=== PATIENT | male | born 1950 | race Caucasian/White ===

== ENCOUNTER 2023-03-20 11:34 | Inpatient (IN) | payer MEDICARE ==
[~2023-03-20] VITALS: Ht 188 cm; Wt 86.6 kg
[~2023-03-20 11:34] MED LIST: SULF1TAB48 PO
[2023-03-20 11:54] LABS: BASOPHILS % (AUTO) 0.6 % (0-1); EOSINOPHILS # (AUTO) 0.1 X10'3 (0-0.9); EOSINOPHILS % (AUTO) 0.8 % (0-6); HEMATOCRIT 47.4 % (42.0-52.0); HEMOGLOBIN 15.9 g/dl (14.0-17.9); LYMPHOCYTES # (AUTO) 1.3 X10'3 (1.1-4.8); MEAN CORPUSCULAR HGB CONC 33.5 g/dL (33.0-36.5); MEAN CORPUSCULAR VOLUME 92.7 FL (78-98); MONOCYTES # (AUTO) 0.8 X10'3 (0-0.9); MONOCYTES % (AUTO) 10.7 % (2-12); NEUTROPHILS # (AUTO) 4.9 X10'3 (1.8-7.7); NEUTROPHILS % (AUTO) 68.9 % (42-75); PLATELET COUNT 340 X10'3 (140-440); RED BLOOD COUNT 5.12 X10'6 (4.70-6.10); RED CELL DISTRIBUTION WIDTH 14.5 % (11.5-14.5); WHITE BLOOD COUNT 7.1 X10'3 (4.5-11.0)
[2023-03-20 12:11] LABS: ALANINE AMINOTRANSFERASE 29 U/L (12-78); ALBUMIN 3.2 G/DL (3.4-5.0); ALKALINE PHOSPHATASE 76 IU/L (46-116); ANION GAP 11 (8-16); ASPARTATE AMINO TRANSFERASE 28 U/L (10-37); BILIRUBIN,TOTAL 1.1 MG/DL (0.1-1.0); BLOOD UREA NITROGEN 12 MG/DL (7-18); BUN/CREATININE RATIO 14.3 (10.0-20.0); CHLORIDE 104 MMOL/L (99-107); CREATININE 0.84 MG/DL (0.60-1.10); GLUCOSE 109 MG/DL (70-104); POTASSIUM 3.6 MMOL/L (3.5-5.1); SODIUM 140 MMOL/L (135-145); TOTAL CARBON DIOXIDE 25.4 MMOL/L (24-32); TOTAL PROTEIN 6.5 G/DL (6.4-8.2); eCRCL 94 ML/MIN; eGFR 90 ML/MIN
[2023-03-20 12:18] LABS: PRO BRAIN NATRIURETIC PEPTIDE 822 PG/ML (0-125)
[2023-03-20] MEDS ORDERED: iohexol 350MG/ML 100ml bottle IV ONE (16:11)
[2023-03-20 19:25] LABS: ABG BASE EXCESS -0.2 mmol/L (-2.0-2.0); ABG HCO3 22.9 mmol/L (22.0-26.0); ABG OXYGEN SATURATION 94.7 % (94-97); ABG PCO2 (T) 33.7 mmHg (35.0-48.0); ABG PO2 (T) 69.2 mmHg (75.0-100.0); FCOHb 0.6 % (0.0-3.9); FHHb 5.2 % (0.0-5.0); FLOW 2 L/min; FMetHb 0.4 % (0.0-1.5); FO2Hb 93.8 % (94-97); MODE NASAL CANNULA
[2023-03-20] MEDS ORDERED: furosemide 10 MG/1 ML 10ml inj IV ONE (19:35)
--- NOTE | 2023-03-20 19:38 | NUR ---
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 MD at bedside. Orders received. Patient states he self caths, order obtained for indwelling lopez.
[2023-03-20] MEDS ORDERED: LIDOcaine 2% 10ml TOPICAL JELLY (Urojet) TP ONE (19:40)
[2023-03-20] MEDS ORDERED: LidoCAINE 2% Topical Jelly 11mL syringe TOP ONE (20:00)
[2023-03-20] MEDS ORDERED: dextrose 50%-water 50ml dispensing syringe IV PRN (20:40)
[2023-03-20] MEDS ORDERED: ondansetron 4mg rapidly disintigrating tab PO PRN (20:40)
[2023-03-20] MEDS ORDERED: ipratropium/albuterol 3ml nebule NEB PRN (20:40)
[2023-03-20] MEDS ORDERED: HYDROcodone/acetaminophen 5mg/325mg tablet PO PRN (20:40)
[2023-03-20] MEDS ORDERED: ondansetron/PF 4mg/2ml inj IV PRN (20:40)
[2023-03-20] MEDS ORDERED: acetaminophen 325mg tablet PO PRN ×2 (20:40)
[2023-03-20] MEDS ORDERED: haloperidol lactate 5mg/ml inj IM PRN (20:40)
[2023-03-20] MEDS ORDERED: magnesium hydroxide 30ml (MOM) UD suspension PO PRN (20:40)
[2023-03-20] MEDS ORDERED: haloperidol 5mg tablet PO PRN (20:40)
[2023-03-20] MEDS ORDERED: bisacodyl 10mg suppository rectal RC PRN (20:40)
[2023-03-20] MEDS ORDERED: diphenhydrAMINE 25mg capsule PO PRN (20:40)
[2023-03-20] MEDS ORDERED: morphine 2 MG/ML inj. syringe IV PRN (20:40)
[2023-03-20] MEDS ORDERED: LORazepam 2 mg/ml vial IV PRN (20:40)
[2023-03-20] MEDS ORDERED: mag hydrox/Alum hydrox/simeth 30ml oral suspension PO PRN (20:40)
[2023-03-20] MEDS ORDERED: acetaminophen 650mg rectal suppository RC PRN (20:40)
[2023-03-20] MEDS ORDERED: diphenhydrAMINE 50 mg/ml inj IV PRN (20:40)
[2023-03-20] MEDS ORDERED: ringers solution, lacted 1,000 ML IV ONE (20:50)
[2023-03-20] MEDS ORDERED: temazepam 15mg capsule PO PRN (21:00)
[2023-03-20] MEDS: dextrose 5%-1/2 normal saline 1,000 ML IV SCH (21:25)
[2023-03-20 21:34] LABS: BILIRUBIN,URINE NEGATIVE (Neg); CLARITY,URINE CLEAR (Clear); COLOR,URINE STRAW (Yellow); GLUCOSE, URINE NEGATIVE (Neg); KETONES,URINE NEGATIVE (Neg); LEUKOCYTE ESTERASE ,URINE NEGATIVE (Neg); NITRITES, URINE NEGATIVE (Neg); OCCULT BLOOD,URINE TRACE-INTACT (Neg); PROTEIN,URINE NEGATIVE (Neg); UROBILINOGEN,URINE 0.2 E.U/dL (0.2-1.0)
[2023-03-20] MEDS: thiamine 100mg/ml 2ml inj. IV SCH (21:35)
[2023-03-20] MEDS: CefTRIAXone/D5W-Rocephin 1gm 50 ML IV SCH (21:38)
[2023-03-20 21:42] LABS: UA COLLECTION TYPE FOLEY CATH
[2023-03-20 21:43] LABS: SQUAMOUS EPITHELIAL CELL,UR NONE SEEN /LPF (FEW)
[2023-03-20 21:44] LABS: BACTERIA,URINE FEW /HPF (Neg); WBC,URINE 0-4 /HPF (0-4)
[2023-03-20 21:49] LABS: URINE AMPHETAMINE SCREEN NEGATIVE (Neg); URINE BARBITUATE SCREEN NEGATIVE (Neg); URINE BENZODIAZEPINES SCREEN NEGATIVE (Neg); URINE CANNABINOID SCREEN NEGATIVE (Neg); URINE COCAINE SCREEN NEGATIVE (Neg); URINE METHADONE SCREEN NEGATIVE (Neg); URINE OPIATE SCREEN NEGATIVE (Neg); URINE PHENCYCLIDINE SCREEN NEGATIVE (Neg)
[2023-03-20 21:49] LABS: HEMOGLOBIN A1C 5.5 % (4.5-6.2)
[2023-03-20 21:57] LABS: APTT 27 SECONDS (22-32); PROTHROMBIN TIME 10.3 SECONDS (9.0-12.0)
[2023-03-20] MEDS: azithromycin/NS 500mg/250ml 250 ML IV SCH (22:01)
[2023-03-20 22:15] VITALS: PULSE 105; RESP 18; O2SAT 94
[2023-03-20 22:18] LABS: CREATINE KINASE 61 U/L (39-308); ETHANOL < 10 MG/DL (<10); LIPASE 25 U/L (16-77); MAGNESIUM 1.6 MG/DL (1.5-2.4); PHOSPHORUS 3.4 MG/DL (2.3-4.5); PRO BRAIN NATRIURETIC PEPTIDE 1686 PG/ML (0-125); THYROID STIMULATING HORMONE 4.66 ulU/ml (0.34-4.50)
[2023-03-20 22:41] LABS: OSMOLALITY 301 MOSM/K (280-300)
--- NOTE | 2023-03-21 02:30 | NUR ---
Patient resting in bed awake, watching TV on his phone. Respirations even and unlabored, no acute distress noted at this time, call light within reach.
--- NOTE | 2023-03-21 03:35 | NUR ---
Water provided for patient, denies further needs at this time, call light within reach.
[2023-03-21 03:47] LABS: BASOPHILS % (AUTO) 0.3 % (0-1); EOSINOPHILS # (AUTO) 0.1 X10'3 (0-0.9); EOSINOPHILS % (AUTO) 0.7 % (0-6); HEMATOCRIT 49.2 % (42.0-52.0); HEMOGLOBIN 16.4 g/dl (14.0-17.9); LYMPHOCYTES # (AUTO) 1.4 X10'3 (1.1-4.8); LYMPHOCYTES % (AUTO) 13.5 % (21-51); MEAN CORPUSCULAR HEMOGLOBIN 30.8 PG (27.0-31.0); MEAN CORPUSCULAR HGB CONC 33.2 g/dL (33.0-36.5); MEAN CORPUSCULAR VOLUME 92.6 FL (78-98); MONOCYTES # (AUTO) 1.1 X10'3 (0-0.9); MONOCYTES % (AUTO) 10.9 % (2-12); NEUTROPHILS # (AUTO) 7.6 X10'3 (1.8-7.7); NEUTROPHILS % (AUTO) 74.6 % (42-75); PLATELET COUNT 366 X10'3 (140-440); RED BLOOD COUNT 5.31 X10'6 (4.70-6.10); RED CELL DISTRIBUTION WIDTH 14.3 % (11.5-14.5); WHITE BLOOD COUNT 10.2 X10'3 (4.5-11.0)
[2023-03-21 04:00] LABS: ALANINE AMINOTRANSFERASE 26 U/L (12-78); ALBUMIN 3.2 G/DL (3.4-5.0); ALKALINE PHOSPHATASE 82 IU/L (46-116); ANION GAP 9 (8-16); ASPARTATE AMINO TRANSFERASE 25 U/L (10-37); BLOOD UREA NITROGEN 11 MG/DL (7-18); BUN/CREATININE RATIO 12.5 (10.0-20.0); CALCIUM 8.9 MG/DL (8.5-10.1); CHLORIDE 102 MMOL/L (99-107); CHOL/HDL RATIO 2.9 (0.00-4.99); CHOLESTEROL 166 MG/DL (0-200); CREATININE 0.88 MG/DL (0.60-1.10); GLUCOSE 114 MG/DL (70-104); HDL CHOLESTEROL 57 MG/DL (35-60); LDL CHOLESTEROL 91 MG/DL (50-100); POTASSIUM 3.5 MMOL/L (3.5-5.1); SODIUM 139 MMOL/L (135-145); TOTAL CARBON DIOXIDE 28.5 MMOL/L (24-32); TOTAL PROTEIN 6.5 G/DL (6.4-8.2); TRIGLYCERIDES 162 MG/DL (20-135); eCRCL 90 ML/MIN; eGFR 85 ML/MIN
[2023-03-21] MEDS: dextrose 5%-1/2 normal saline 1,000 ML IV SCH ×2 (07:27→17:35)
[2023-03-21 07:28] VITALS: PULSE 99; RESP 18; O2SAT 94
[2023-03-21] MEDS: heparin, porcine 5000 units/ml vial SQ SCH ×2 (08:12→20:56)
[2023-03-21] MEDS: thiamine 100mg/ml 2ml inj. IV SCH ×3 (08:12→21:03)
[2023-03-21] MEDS: methylPREDNISolone sod succ 125mg/2ml vial IV SCH ×2 (08:12→20:54)
[2023-03-21] MEDS: pantoprazole 40mg Tablet.DR PO SCH (08:13)
[2023-03-21] MEDS: docusate sod 100mg capsule PO SCH ×2 (08:13→20:00)
[2023-03-21] MEDS: folic acid 1mg/0.2ml inj IV SCH (09:15)
--- NOTE | 2023-03-21 11:18 | NUR ---
Pt. placed on hospital bed for comfort. Pt. sat in chair at side of bed and became SOB with minimal exertion. SpO2 remained in mid 90's.
[2023-03-21] MEDS ORDERED: PERFLUTREN PROTEIN-A MICROSPHR (Optison) 0.22 MG/ML 3ML VIAL IV ONE (12:50)
--- NOTE | 2023-03-21 16:40 | NUR ---
ONUR CAMPA NOTIFIED BY RADIOLOGY DIRECTOR PT ECHO RESULT 20-25% EF. DR. UPTON NOTIFIED. NO NEW ORDERS AT THIS TIME.
[2023-03-21] MEDS ORDERED: furosemide 10 MG/1 ML 10ml inj IV ONE (20:50)
[2023-03-21] MEDS: lisinopril 2.5mg tablet PO SCH (21:12)
[2023-03-21] MEDS: CefTRIAXone/D5W-Rocephin 1gm 50 ML IV SCH (21:16)
[2023-03-21] MEDS: azithromycin/NS 500mg/250ml 250 ML IV SCH (22:30)
--- NOTE | 2023-03-21 23:38 | NUR ---
Patient complaint of an aching Chest pain, 3/10, non radiating, begining approx 30 min ago. Pt denies nausa. EKG ordered.
--- NOTE | 2023-03-21 23:45 | NUR ---
notified of patient chest pain. New order for Tylenol 650 mg.
[2023-03-22] VITALS (11 sets, daily range): BP systolic 89–108; BP diastolic 56–74; PULSE 60–106; RESP 12–18; TEMP 97.2–98.4; O2SAT 91–99
[2023-03-22] MEDS: dextrose 5%-1/2 normal saline 1,000 ML IV SCH ×3 (02:40→20:42)
[2023-03-22 03:16] LABS: BASOPHILS % (AUTO) 0.2 % (0-1); EOSINOPHILS % (AUTO) 0 % (0-6); HEMATOCRIT 49.7 % (42.0-52.0); HEMOGLOBIN 16.5 g/dl (14.0-17.9); LYMPHOCYTES # (AUTO) 0.6 X10'3 (1.1-4.8); LYMPHOCYTES % (AUTO) 4.5 % (21-51); MEAN CORPUSCULAR HEMOGLOBIN 30.7 PG (27.0-31.0); MEAN CORPUSCULAR HGB CONC 33.2 g/dL (33.0-36.5); MEAN CORPUSCULAR VOLUME 92.5 FL (78-98); MEAN PLATELET VOLUME 8.9 FL (7.4-10.4); MONOCYTES # (AUTO) 0.3 X10'3 (0-0.9); MONOCYTES % (AUTO) 2.6 % (2-12); NEUTROPHILS # (AUTO) 11.6 X10'3 (1.8-7.7); NEUTROPHILS % (AUTO) 92.7 % (42-75); PLATELET COUNT 359 X10'3 (140-440); RED BLOOD COUNT 5.38 X10'6 (4.70-6.10); RED CELL DISTRIBUTION WIDTH 14.3 % (11.5-14.5); WHITE BLOOD COUNT 12.5 X10'3 (4.5-11.0)
[2023-03-22 03:27] LABS: ANION GAP 8 (8-16); CHLORIDE 101 MMOL/L (99-107); POTASSIUM 3.9 MMOL/L (3.5-5.1); SODIUM 137 MMOL/L (135-145); TOTAL CARBON DIOXIDE 28.1 MMOL/L (24-32)
[2023-03-22 03:56] LABS: ALANINE AMINOTRANSFERASE 29 U/L (12-78); ALBUMIN 3.1 G/DL (3.4-5.0); ALBUMIN/GLOBULIN RATIO 0.9 (1.1-1.5); ALKALINE PHOSPHATASE 82 IU/L (46-116); ASPARTATE AMINO TRANSFERASE 27 U/L (10-37); BLOOD UREA NITROGEN 12 MG/DL (7-18); CALCIUM 9.1 MG/DL (8.5-10.1); CREATININE 0.92 MG/DL (0.60-1.10); GLUCOSE 140 MG/DL (70-104); TOTAL PROTEIN 6.6 G/DL (6.4-8.2); eCRCL 86 ML/MIN; eGFR 81 ML/MIN
[2023-03-22] MEDS ORDERED: FURO40TA4 PO (07:12)
[2023-03-22] MEDS ORDERED: FLO0.4C PO (07:12)
[2023-03-22] MEDS ORDERED: CARV6.253 PO (07:12)
[2023-03-22] MEDS ORDERED: ATOR20TA66 PO (07:12)
[2023-03-22] MEDS ORDERED: SPIR25TA5 PO (07:12)
[2023-03-22] MEDS ORDERED: carVEDilol 3.125mg tablet PO SCH (08:00)
[2023-03-22] MEDS: furosemide 40mg/4ml inj IV SCH ×2 (08:51→20:29)
[2023-03-22] MEDS: methylPREDNISolone sod succ 125mg/2ml vial IV SCH ×2 (08:51→20:29)
[2023-03-22] MEDS: thiamine 100mg/ml 2ml inj. IV SCH ×3 (08:51→20:29)
[2023-03-22] MEDS: lisinopril 2.5mg tablet PO SCH (08:52)
[2023-03-22] MEDS: docusate sod 100mg capsule PO SCH ×2 (08:52→20:30)
[2023-03-22] MEDS: heparin, porcine 5000 units/ml vial SQ SCH ×2 (08:52→20:30)
--- NOTE | 2023-03-22 08:56 | NUR ---
Patient in room ED 6. I have received report from [facility] and had the opportunity to ask questions and assume patient care.
[2023-03-22] MEDS: pantoprazole 40mg Tablet.DR PO SCH (09:46)
[2023-03-22] MEDS: folic acid 1mg/0.2ml inj IV SCH (10:20)
--- NOTE | 2023-03-22 17:34 | NUR ---
PAGER ID: [phone] MESSAGE: BOBBY RUIZ RE:[id number] Cailin CLARK PATIENT HAS HISTORY OF CHF AND PBNP OF 1650 , DID YOU WANT HIS FLUIDS TO CONTINUE TO RUN AT 100ML/HR THEY HAVE OR DID YOU WANT TO SLOW OR STOP THEM?
--- NOTE | 2023-03-22 17:47 | NUR ---
Student documentation: I have reviewed all interventions, assessments performed and documented by Fito YOUSIF. Student Medication Administration: For this medication-pass time frame, all medication were reviewed, dispensed, administered and documented per hospital policy by Fito YOUSIF.
--- NOTE | 2023-03-22 18:27 | NUR ---
Problems reprioritized. Patient report given, questions answered & plan of care reviewed with MARK.
[2023-03-22] MEDS: carvedilol 6.25mg tablet PO SCH (20:00)
[2023-03-22] MEDS: tamsulosin 0.4mg capsule PO SCH (20:30)
[2023-03-22] MEDS ORDERED: LORazepam 2 mg/ml vial IV PRN (20:40)
[2023-03-22] MEDS ORDERED: LORazepam 1 MG tablet PO PRN (20:40)
[2023-03-22] MEDS: CefTRIAXone/D5W-Rocephin 1gm 50 ML IV SCH (20:42)
[2023-03-22] MEDS: azithromycin/NS 500mg/250ml 250 ML IV SCH (21:37)
[2023-03-23] VITALS (11 sets, daily range): BP systolic 89–106; BP diastolic 63–78; PULSE 51–101; RESP 11–18; TEMP 97.2–98.7; O2SAT 92–97
--- NOTE | 2023-03-23 06:36 | NUR ---
Problems reprioritized. Patient report given, questions answered & plan of care reviewed with FRANKLIN. Addendum: 03/23/23 at 0636 by Calin Jones RN Amended: Links added.
[2023-03-23] MEDS: folic acid 1mg/0.2ml inj IV SCH (08:00)
[2023-03-23] MEDS: docusate sod 100mg capsule PO SCH ×2 (08:00→19:15)
[2023-03-23] MEDS: furosemide 40mg/4ml inj IV SCH ×2 (08:00→19:14)
[2023-03-23] MEDS ORDERED: furosemide 40mg tablet PO SCH (08:00)
[2023-03-23] MEDS: methylPREDNISolone sod succ 125mg/2ml vial IV SCH ×2 (09:15→19:23)
[2023-03-23] MEDS: thiamine 100mg/ml 2ml inj. IV SCH ×2 (09:15→15:08)
[2023-03-23 09:16] LABS: BASOPHILS # (AUTO) 0.1 X10'3 (0-0.2); BASOPHILS % (AUTO) 0.4 % (0-1); EOSINOPHILS % (AUTO) 0 % (0-6); HEMATOCRIT 46.2 % (42.0-52.0); HEMOGLOBIN 15.4 g/dl (14.0-17.9); LYMPHOCYTES # (AUTO) 1.1 X10'3 (1.1-4.8); LYMPHOCYTES % (AUTO) 8.7 % (21-51); MEAN CORPUSCULAR HEMOGLOBIN 31.1 PG (27.0-31.0); MEAN CORPUSCULAR HGB CONC 33.4 g/dL (33.0-36.5); MEAN CORPUSCULAR VOLUME 93.1 FL (78-98); MEAN PLATELET VOLUME 8.9 FL (7.4-10.4); MONOCYTES # (AUTO) 0.9 X10'3 (0-0.9); MONOCYTES % (AUTO) 6.7 % (2-12); NEUTROPHILS # (AUTO) 10.7 X10'3 (1.8-7.7); NEUTROPHILS % (AUTO) 84.2 % (42-75); PLATELET COUNT 364 X10'3 (140-440); RED BLOOD COUNT 4.96 X10'6 (4.70-6.10); RED CELL DISTRIBUTION WIDTH 14.5 % (11.5-14.5); WHITE BLOOD COUNT 12.7 X10'3 (4.5-11.0)
[2023-03-23] MEDS: spironolactone 25 MG tablet PO SCH (09:17)
[2023-03-23] MEDS: tamsulosin 0.4mg capsule PO SCH ×2 (09:19→19:15)
[2023-03-23] MEDS: carvedilol 6.25mg tablet PO SCH ×2 (09:19→19:14)
[2023-03-23] MEDS: lisinopril 2.5mg tablet PO SCH (09:20)
[2023-03-23] MEDS: heparin, porcine 5000 units/ml vial SQ SCH ×2 (09:21→19:16)
[2023-03-23] MEDS: atorvastatin 20mg tablet PO SCH (09:22)
[2023-03-23] MEDS: pantoprazole 40mg Tablet.DR PO SCH (09:25)
[2023-03-23 10:06] LABS: ALANINE AMINOTRANSFERASE 32 U/L (12-78); ALBUMIN 3.2 G/DL (3.4-5.0); ALKALINE PHOSPHATASE 75 IU/L (46-116); ANION GAP 11 (8-16); ASPARTATE AMINO TRANSFERASE 25 U/L (10-37); BILIRUBIN,TOTAL 1.3 MG/DL (0.1-1.0); BLOOD UREA NITROGEN 22 MG/DL (7-18); CALCIUM 9.2 MG/DL (8.5-10.1); CHLORIDE 102 MMOL/L (99-107); GLUCOSE 132 MG/DL (70-104); POTASSIUM 3.5 MMOL/L (3.5-5.1); SODIUM 140 MMOL/L (135-145); TOTAL CARBON DIOXIDE 27.2 MMOL/L (24-32); TOTAL PROTEIN 6.5 G/DL (6.4-8.2); eCRCL 79 ML/MIN; eGFR 74 ML/MIN
--- NOTE | 2023-03-23 14:25 | NUR ---
Patient in room PCU 3017. I have received report from Ivette CAMPA and had the opportunity to ask questions and assume patient care.
--- NOTE | 2023-03-23 14:39 | NUR ---
Problems reprioritized. Patient report given, questions answered & plan of care reviewed with DAVEY Casiano.
--- NOTE | 2023-03-23 15:38 | NUR ---
Received order for consult. Met with patient in regards to alcohol use and to see if patient was interested in resources for treatment options. Patient declined.
[2023-03-23] MEDS ORDERED: FOLI1TAB27 PO (18:23)
[2023-03-23] MEDS ORDERED: METH4TAB81 PO (18:23)
[2023-03-23] MEDS ORDERED: LISI2.5T14 PO (18:23)
[2023-03-23] MEDS ORDERED: MULT-1085 PO (18:23)
[2023-03-23] MEDS ORDERED: FLUT1BLS4 INH (18:23)
[2023-03-23] MEDS ORDERED: AZI25OT PO (18:23)
[2023-03-23] MEDS ORDERED: PANT40TA54 PO (18:23)
[2023-03-23] MEDS ORDERED: thiamine tablet PO (18:23)
[2023-03-23] MEDS ORDERED: ALBU18HF2 INH (18:23)
--- NOTE | 2023-03-23 18:24 | NUR ---
Problems reprioritized. Patient report given, questions answered & plan of care reviewed with Sky MARISCAL.
[2023-03-23] MEDS: dextrose 5%-1/2 normal saline 1,000 ML IV SCH (18:33)
[2023-03-23] MEDS: CefTRIAXone/D5W-Rocephin 1gm 50 ML IV SCH (21:00)
[2023-03-23] MEDS ORDERED: azithromycin 250mg tablet PO SCH (22:00)
[2023-03-24 02:00] VITALS: BP 98/65; PULSE 96; RESP 18; TEMP 97.8; O2SAT 100
[2023-03-24 07:00] VITALS: BP 110/65; PULSE 89; RESP 20; TEMP 98.1; O2SAT 93; O2SAT 96
[2023-03-24 07:49] LABS: BASOPHILS % (AUTO) 0.1 % (0-1); EOSINOPHILS % (AUTO) 0.1 % (0-6); HEMATOCRIT 45.4 % (42.0-52.0); HEMOGLOBIN 15.3 g/dl (14.0-17.9); LYMPHOCYTES # (AUTO) 1.2 X10'3 (1.1-4.8); LYMPHOCYTES % (AUTO) 11.6 % (21-51); MEAN CORPUSCULAR HEMOGLOBIN 31.5 PG (27.0-31.0); MEAN CORPUSCULAR HGB CONC 33.8 g/dL (33.0-36.5); MEAN CORPUSCULAR VOLUME 93.1 FL (78-98); MEAN PLATELET VOLUME 8.6 FL (7.4-10.4); MONOCYTES # (AUTO) 0.9 X10'3 (0-0.9); MONOCYTES % (AUTO) 8.6 % (2-12); NEUTROPHILS # (AUTO) 8.2 X10'3 (1.8-7.7); NEUTROPHILS % (AUTO) 79.6 % (42-75); PLATELET COUNT 317 X10'3 (140-440); RED BLOOD COUNT 4.87 X10'6 (4.70-6.10); RED CELL DISTRIBUTION WIDTH 14.5 % (11.5-14.5); WHITE BLOOD COUNT 10.3 X10'3 (4.5-11.0)
[2023-03-24 08:34] LABS: ALANINE AMINOTRANSFERASE 30 U/L (12-78); ALBUMIN 2.9 G/DL (3.4-5.0); ALKALINE PHOSPHATASE 66 IU/L (46-116); ANION GAP 9 (8-16); ASPARTATE AMINO TRANSFERASE 18 U/L (10-37); BILIRUBIN,TOTAL 1.1 MG/DL (0.1-1.0); BLOOD UREA NITROGEN 23 MG/DL (7-18); BUN/CREATININE RATIO 25.6 (10.0-20.0); CALCIUM 8.6 MG/DL (8.5-10.1); CHLORIDE 102 MMOL/L (99-107); GLUCOSE 110 MG/DL (70-104); POTASSIUM 3.7 MMOL/L (3.5-5.1); SODIUM 140 MMOL/L (135-145); TOTAL CARBON DIOXIDE 28.7 MMOL/L (24-32); TOTAL PROTEIN 5.9 G/DL (6.4-8.2); eCRCL 88 ML/MIN; eGFR 83 ML/MIN
[2023-03-24] MEDS: docusate sod 100mg capsule PO SCH (09:08)
[2023-03-24] MEDS: pantoprazole 40mg Tablet.DR PO SCH (09:08)
[2023-03-24] MEDS: lisinopril 2.5mg tablet PO SCH (09:08)
[2023-03-24] MEDS: carvedilol 6.25mg tablet PO SCH (09:09)
[2023-03-24] MEDS: heparin, porcine 5000 units/ml vial SQ SCH (09:09)
[2023-03-24] MEDS: atorvastatin 20mg tablet PO SCH (09:09)
[2023-03-24] MEDS: tamsulosin 0.4mg capsule PO SCH (09:09)
[2023-03-24] MEDS: methylPREDNISolone sod succ 125mg/2ml vial IV SCH (09:09)
[2023-03-24] MEDS: spironolactone 25 MG tablet PO SCH (09:10)
[2023-03-24] MEDS: furosemide 40mg/4ml inj IV SCH (09:10)
[2023-03-24 11:00] VITALS: BP 96/67; PULSE 104; RESP 12; TEMP 98.2; O2SAT 97
[2023-03-24] MEDS ORDERED: FURO40TA4 PO (11:15)
[2023-03-24] MEDS ORDERED: NALT50TA PO (11:21)
--- NOTE | 2023-03-24 13:36 | NUR ---
PATIENT WAS DC TO HOME. PIV X2 REMOVED WITH CANNULAS INTACT. MEZA WAS REMOVED -PATIENT DID NOT PEE BEFORE HE LEFT BUT HE STRAIGHT CATHS HIMSELF AT [place]ELINE AT HOME. HE STATED HE HAD ALL OF HIS SUPPLIES TO CONTINUE TO STRAIGHT CATH AT HOME. DC INSTRUCTIONS AND WARNING S/S WERE REVIEWED WITH PATIENT AND HE VERBALIZED UNDERSTANDING. RX WERE SENT TO [facility]. PATIENT'S QUESTIONS WERE ANSWERED TO SATISFACTION. HE WAS WHEELED TO FRONT OF HOSPITAL AND DROVE HIMSELF HOME. PATIENT DID NOT QUALIFY FOR HOME O2.
--- NOTE | 2023-03-24 16:12 | NUR ---
Page Accepted promotional table spacer Message: [id number] BRITTNEY CLARK,. PT WAS DC IRON PONCETA IS $800/MONTH. PT WAS WONDERING IF THERE IS AN ALTERNATIVE THAT CAN BE PRESCRIBED. [email or web address] Custom Responses: promotional table spacer Transaction number: [id number]
--- NOTE | 2023-03-24 16:50 | NUR ---
PER DR KIMBALL OK T SUBSTITUTE ADVAIR OR SIMBACORT INHALER AND FLUTICORTISONE INHALER FOR IRON OSUNA BECAUSE OF COST TO PATIENT OVER $800/ MONTH
[2023-03-24] MEDS ORDERED: LORazepam 1 MG tablet PO PRN (20:40)
[2023-03-24] MEDS ORDERED: LORazepam 2 mg/ml vial IV PRN (20:40)
[2023-03-25] MEDS ORDERED: thiamine 100mg tablet PO SCH (08:00)
[2023-03-25] MEDS ORDERED: folic acid 1mg tablet PO SCH (08:00)
== END 2023-03-24 12:11 | disposition home or self-care (01) | DRG 189 ==
LOC: ER 11:35 → ED HOLD 20:47 → EDBEDREQ 03-22 08:23 → CMPBEDREQ 03-22 08:56 → PCU 3S 03-22 09:05
PROVIDERS: ADMIT Family Medicine; ATTEND Internal Medicine
PROC: B32T1ZZ Computerized Tomography (CT Scan) of Left Pulmonary Artery using Low Osmolar Contrast (ICD-10-PCS; principal; 2023-03-20)
PROC: B3201ZZ Computerized Tomography (CT Scan) of Thoracic Aorta using Low Osmolar Contrast (ICD-10-PCS; 2023-03-20)
PROC: B32S1ZZ Computerized Tomography (CT Scan) of Right Pulmonary Artery using Low Osmolar Contrast (ICD-10-PCS; 2023-03-20)
DX: J96.01 Acute respiratory failure with hypoxia (principal); I50.43 Acute on chronic combined systolic (congestive) and diastolic (congestive) heart failure; J44.1 Chronic obstructive pulmonary disease with (acute) exacerbation; F10.239 Alcohol dependence with withdrawal, unspecified; I11.0 Hypertensive heart disease with heart failure; I08.1 Rheumatic disorders of both mitral and tricuspid valves; R00.0 Tachycardia, unspecified; N40.0 Benign prostatic hyperplasia without lower urinary tract symptoms; Z82.41 Family history of sudden cardiac death; Z82.49 Family history of ischemic heart disease and other diseases of the circulatory system; Z82.5 Family history of asthma and other chronic lower respiratory diseases; Z87.891 Personal history of nicotine dependence; Z87.01 Personal history of pneumonia (recurrent)
CPT/HCPCS: 36415; 36600; 71045; 71275; 74177; 80053; 80061; 80305; 80320; 81001; 82550; 82803; 83036; 83605; 83690; 83735; 83880; 83930; 84100; 84443; 84484; 85018; 85025; 85610; 85730; 87040; 87081; 93306; 94760; 99285; A4314; A4615; G0378; J0456; J0696; J1644; J1940; J2930; J3411; J3490; J7120; Q9967

== ENCOUNTER 2024-03-12 16:21 | Inpatient (IN) | payer MEDICARE ==
[~2024-03-12] VITALS: Ht 182.9 cm; Wt 93.8 kg
[~2024-03-12 16:21] MED LIST changes: +ALBU18HF2 INH; +ATOR20TA66 PO; +AZI25OT PO; +CARV6.253 PO; +FLO0.4C PO; +FLUT1BLS4 INH; +FOLI1TAB27 PO; +FURO40TA4 PO; +LISI2.5T14 PO; +METH4TAB81 PO; +MULT-1085 PO; +NALT50TA5 PO; +PANT40TA54 PO; +SPIR25TA5 PO; -SULF1TAB48 PO; +thiamine tablet PO
[2024-03-12 16:50] LABS: BASOPHILS # (AUTO) 0.1 X10'3 (0-0.2); BASOPHILS % (AUTO) 0.7 % (0-1); EOSINOPHILS # (AUTO) 0.1 X10'3 (0-0.9); EOSINOPHILS % (AUTO) 1.3 % (0-6); HEMATOCRIT 51.3 % (42.0-52.0); HEMOGLOBIN 17.4 g/dl (14.0-17.9); LYMPHOCYTES % (AUTO) 20.5 % (21-51); MEAN CORPUSCULAR HEMOGLOBIN 33.2 PG (27.0-31.0); MEAN CORPUSCULAR HGB CONC 33.9 g/dL (33.0-36.5); MEAN CORPUSCULAR VOLUME 97.9 FL (78-98); MEAN PLATELET VOLUME 8.3 FL (7.4-10.4); MONOCYTES # (AUTO) 1.4 X10'3 (0-0.9); MONOCYTES % (AUTO) 14.3 % (2-12); NEUTROPHILS # (AUTO) 6.2 X10'3 (1.8-7.7); NEUTROPHILS % (AUTO) 63.2 % (42-75); PLATELET COUNT 315 X10'3 (140-440); RED BLOOD COUNT 5.24 X10'6 (4.70-6.10); RED CELL DISTRIBUTION WIDTH 15.8 % (11.5-14.5); WHITE BLOOD COUNT 9.8 X10'3 (4.5-11.0)
[2024-03-12 16:52] LABS: ALANINE AMINOTRANSFERASE 36 U/L (12-78); ALBUMIN 3.3 G/DL (3.4-5.0); ALKALINE PHOSPHATASE 90 IU/L (46-116); ANION GAP 11 (8-16); ASPARTATE AMINO TRANSFERASE 34 U/L (10-37); BILIRUBIN,TOTAL 3.5 MG/DL (0.1-1.0); BLOOD UREA NITROGEN 16 MG/DL (7-18); BUN/CREATININE RATIO 10.4 (10.0-20.0); CALCIUM 8.6 MG/DL (8.5-10.1); CHLORIDE 96 MMOL/L (99-107); CREATININE 1.54 MG/DL (0.60-1.10); GLUCOSE 136 MG/DL (70-104); POTASSIUM 3.3 MMOL/L (3.5-5.1); SODIUM 136 MMOL/L (135-145); TOTAL CARBON DIOXIDE 29.3 MMOL/L (24-32); TOTAL PROTEIN 6.6 G/DL (6.4-8.2); eCRCL 48 ML/MIN; eGFR 45 ML/MIN
[2024-03-12 17:01] LABS: PRO BRAIN NATRIURETIC PEPTIDE 4328 PG/ML (0-125)
[2024-03-12] MEDS ORDERED: iohexol 350MG/ML 100ml bottle IV ONE (17:12)
[2024-03-12 17:41] LABS: BILIRUBIN,URINE MODERATE (Neg); CLARITY,URINE SLIGHTLY CLOUDY (Clear); COLOR,URINE YELLOW (Yellow); GLUCOSE, URINE NEGATIVE (Neg); KETONES,URINE TRACE mg/dl (Neg); LEUKOCYTE ESTERASE ,URINE TRACE (Neg); OCCULT BLOOD,URINE SMALL (Neg); PROTEIN,URINE >=300 mg/dl (Neg)
[2024-03-12 17:43] LABS: UA COLLECTION TYPE VOIDED
[2024-03-12 17:45] LABS: NITRITES, URINE NEGATIVE (Neg)
[2024-03-12 17:51] LABS: RBC,URINE 20-50 /HPF (0-2); SQUAMOUS EPITHELIAL CELL,UR MANY /LPF (FEW)
[2024-03-12 17:52] LABS: WBC CLUMPS,URINE FEW /HPF (NEGATIVE)
[2024-03-12 17:53] LABS: BACTERIA,URINE 3+ /HPF (Neg); RENAL CELLS, URINE FEW /HPF; WBC,URINE TNTC /HPF (0-4)
[2024-03-12 17:55] LABS: URINE AMPHETAMINE SCREEN NEGATIVE (Neg); URINE BARBITUATE SCREEN NEGATIVE (Neg); URINE BENZODIAZEPINES SCREEN NEGATIVE (Neg); URINE CANNABINOID SCREEN NEGATIVE (Neg); URINE COCAINE SCREEN NEGATIVE (Neg); URINE METHADONE SCREEN NEGATIVE (Neg); URINE OPIATE SCREEN NEGATIVE (Neg); URINE PHENCYCLIDINE SCREEN NEGATIVE (Neg)
[2024-03-12] MEDS ORDERED: furosemide 10 MG/1 ML 10ml inj IV ONE (18:35)
[2024-03-12] MEDS: CefTRIAXone/D5W-Rocephin 1gm 50 ML IV ONE (18:42)
[2024-03-12] MEDS: furosemide 40mg/4ml inj IV ONE (18:52)
[2024-03-12] MEDS ORDERED: potassium Cl 40MEQ/1/2NS 520ml 520 ML IV PRN (19:50)
[2024-03-12] MEDS ORDERED: magnesium Cl slow-release 64mg tablet PO PRN (19:50)
[2024-03-12] MEDS ORDERED: magnesium hydroxide 30ml (MOM) UD suspension PO PRN (19:50)
[2024-03-12] MEDS ORDERED: mag hydrox/Alum hydrox/simeth 30ml oral suspension PO PRN (19:50)
[2024-03-12] MEDS ORDERED: magnesium sulf-water 4G/100mL 100 ML IV PRN (19:50)
[2024-03-12] MEDS ORDERED: acetaminophen 325mg tablet PO PRN (19:50)
[2024-03-12] MEDS ORDERED: magnesium sulf-water 2g/50mL 50 ML IV PRN (19:50)
[2024-03-12] MEDS ORDERED: ondansetron/PF 4mg/2ml inj IV PRN (19:50)
[2024-03-12] MEDS: K and/or MAG REPLACEMENT MC SCH (20:00)
[2024-03-12] MEDS: docusate sod 100mg capsule PO SCH (20:00)
[2024-03-12] MEDS ORDERED: albuterol 2.5 MG/3 ML nebule NEB PRN (20:10)
[2024-03-12] MEDS ORDERED: LORazepam 2 mg/ml vial IV PRN (20:10)
[2024-03-12 20:28] LABS: APTT 25 SECONDS (22-32); PROTHROMBIN TIME 10.8 SECONDS (9.0-12.0)
[2024-03-12 20:29] LABS: MAGNESIUM 1.6 MG/DL (1.5-2.4)
[2024-03-12 20:39] LABS: HEMOGLOBIN A1C 5.9 % (4.5-6.2)
[2024-03-12 20:51] LABS: ETHANOL < 10 MG/DL (<10)
[2024-03-12 21:40] VITALS: BP 106/79; PULSE 102; RESP 16; TEMP 97.8; O2SAT 94
[2024-03-12] MEDS ORDERED: FURO40TA4 PO (22:30)
[2024-03-12] MEDS: tamsulosin 0.4mg capsule PO SCH (22:50)
[2024-03-12] MEDS: carvedilol 6.25mg tablet PO SCH (22:50)
[2024-03-12] MEDS: heparin, porcine 5000 units/ml vial SQ SCH (22:51)
[2024-03-12] MEDS: potassium Cl 20 mEq SR tablet PO PRN (23:00)
[2024-03-13] VITALS (7 sets, daily range): BP systolic 91–117; BP diastolic 70–79; PULSE 84–98; RESP 16–20; TEMP 96.9–98.1; O2SAT 89–100
[2024-03-13] MEDS: LORazepam 1 MG tablet PO PRN (03:12)
[2024-03-13 06:13] LABS: BASOPHILS # (AUTO) 0.1 X10'3 (0-0.2); BASOPHILS % (AUTO) 0.8 % (0-1); EOSINOPHILS # (AUTO) 0.1 X10'3 (0-0.9); EOSINOPHILS % (AUTO) 1.7 % (0-6); HEMATOCRIT 45.8 % (42.0-52.0); HEMOGLOBIN 15.4 g/dl (14.0-17.9); LYMPHOCYTES # (AUTO) 1.3 X10'3 (1.1-4.8); LYMPHOCYTES % (AUTO) 15.8 % (21-51); MEAN CORPUSCULAR HEMOGLOBIN 32.8 PG (27.0-31.0); MEAN CORPUSCULAR HGB CONC 33.6 g/dL (33.0-36.5); MEAN CORPUSCULAR VOLUME 97.5 FL (78-98); MEAN PLATELET VOLUME 8.7 FL (7.4-10.4); MONOCYTES # (AUTO) 1.1 X10'3 (0-0.9); MONOCYTES % (AUTO) 12.9 % (2-12); NEUTROPHILS # (AUTO) 5.7 X10'3 (1.8-7.7); NEUTROPHILS % (AUTO) 68.8 % (42-75); PLATELET COUNT 246 X10'3 (140-440); RED CELL DISTRIBUTION WIDTH 15.6 % (11.5-14.5); WHITE BLOOD COUNT 8.3 X10'3 (4.5-11.0)
[2024-03-13 06:32] LABS: ALANINE AMINOTRANSFERASE 30 U/L (12-78); ALBUMIN 2.8 G/DL (3.4-5.0); ALBUMIN/GLOBULIN RATIO 0.9 (1.1-1.5); ALKALINE PHOSPHATASE 74 IU/L (46-116); ANION GAP 10 (8-16); ASPARTATE AMINO TRANSFERASE 30 U/L (10-37); BILIRUBIN,TOTAL 3.1 MG/DL (0.1-1.0); BLOOD UREA NITROGEN 18 MG/DL (7-18); BUN/CREATININE RATIO 14.1 (10.0-20.0); CHLORIDE 97 MMOL/L (99-107); CHOL/HDL RATIO 3.3 (0.00-4.99); CHOLESTEROL 134 MG/DL (0-200); CREATININE 1.28 MG/DL (0.60-1.10); GLUCOSE 112 MG/DL (70-104); HDL CHOLESTEROL 41 MG/DL (35-60); LDL CHOLESTEROL 86 MG/DL (50-100); MAGNESIUM 1.7 MG/DL (1.5-2.4); PHOSPHORUS 3.7 MG/DL (2.3-4.5); SODIUM 136 MMOL/L (135-145); TOTAL CARBON DIOXIDE 29.4 MMOL/L (24-32); TOTAL PROTEIN 5.9 G/DL (6.4-8.2); TRIGLYCERIDES 131 MG/DL (20-135); eCRCL 57 ML/MIN; eGFR 55 ML/MIN
[2024-03-13] MEDS: lisinopril 5mg tablet PO SCH (08:00)
[2024-03-13] MEDS: furosemide 40mg/4ml inj IV SCH (08:00)
[2024-03-13] MEDS: spironolactone 25 MG tablet PO SCH (08:30)
[2024-03-13] MEDS: CefTRIAXone/D5W-Rocephin 1gm 50 ML IV SCH (09:56)
[2024-03-13] MEDS: thiamine 100mg tablet PO SCH (10:03)
[2024-03-13] MEDS: folic acid 1mg tablet PO SCH (10:05)
[2024-03-13] MEDS: pantoprazole 40mg Tablet.DR PO SCH (10:05)
[2024-03-13] MEDS: EMPAGLIFLOZIN 10 MG TABLET PO SCH (10:06)
[2024-03-13] MEDS: potassium Cl 20 mEq SR tablet PO PRN (10:06)
[2024-03-13] MEDS: atorvastatin 20mg tablet PO SCH (10:07)
[2024-03-14] VITALS (12 sets, daily range): BP systolic 94–153; BP diastolic 67–110; PULSE 71–93; RESP 18–26; TEMP 96.4–96.9; O2SAT 92–100
[2024-03-14] MEDS: LidoCAINE 2% Topical Jelly 11mL syringe (UROJET) TOP ONE (01:40)
[2024-03-14] MEDS: ipratropium/albuterol 3ml nebule NEB PRN (05:39)
[2024-03-14 05:58] LABS: BASOPHILS % (AUTO) 0.3 % (0-1); EOSINOPHILS % (AUTO) 0.4 % (0-6); HEMATOCRIT 50.2 % (42.0-52.0); HEMOGLOBIN 16.5 g/dl (14.0-17.9); LYMPHOCYTES # (AUTO) 1.5 X10'3 (1.1-4.8); LYMPHOCYTES % (AUTO) 14.4 % (21-51); MEAN CORPUSCULAR HEMOGLOBIN 32.9 PG (27.0-31.0); MEAN CORPUSCULAR HGB CONC 32.9 g/dL (33.0-36.5); MEAN CORPUSCULAR VOLUME 99.8 FL (78-98); MEAN PLATELET VOLUME 8.8 FL (7.4-10.4); MONOCYTES # (AUTO) 1.2 X10'3 (0-0.9); NEUTROPHILS # (AUTO) 7.4 X10'3 (1.8-7.7); NEUTROPHILS % (AUTO) 72.9 % (42-75); PLATELET COUNT 267 X10'3 (140-440); RED BLOOD COUNT 5.02 X10'6 (4.70-6.10); RED CELL DISTRIBUTION WIDTH 15.9 % (11.5-14.5); WHITE BLOOD COUNT 10.2 X10'3 (4.5-11.0)
[2024-03-14 06:19] LABS: ALANINE AMINOTRANSFERASE 33 U/L (12-78); ALBUMIN 2.7 G/DL (3.4-5.0); ALBUMIN/GLOBULIN RATIO 0.8 (1.1-1.5); ALKALINE PHOSPHATASE 75 IU/L (46-116); ANION GAP 11 (8-16); ASPARTATE AMINO TRANSFERASE 34 U/L (10-37); BLOOD UREA NITROGEN 22 MG/DL (7-18); BUN/CREATININE RATIO 16.2 (10.0-20.0); CALCIUM 8.6 MG/DL (8.5-10.1); CHLORIDE 100 MMOL/L (99-107); CREATININE 1.36 MG/DL (0.60-1.10); GLUCOSE 127 MG/DL (70-104); PHOSPHORUS 3.9 MG/DL (2.3-4.5); POTASSIUM 4.1 MMOL/L (3.5-5.1); SODIUM 132 MMOL/L (135-145); TOTAL PROTEIN 6.1 G/DL (6.4-8.2); eCRCL 54 ML/MIN; eGFR 52 ML/MIN
[2024-03-14] MEDS: spironolactone 25 MG tablet PO SCH (08:17)
[2024-03-14] MEDS ORDERED: spironolactone 25 MG tablet PO SCH (08:30)
[2024-03-15 04:23] VITALS: PULSE 79; RESP 21; O2SAT 100
[2024-03-15 06:00] VITALS: BP 113/81; PULSE 87; RESP 16; TEMP 97.1; O2SAT 100
[2024-03-15 06:32] LABS: BASOPHILS % (AUTO) 0.3 % (0-1); EOSINOPHILS % (AUTO) 0.1 % (0-6); HEMATOCRIT 52.2 % (42.0-52.0); HEMOGLOBIN 17.3 g/dl (14.0-17.9); LYMPHOCYTES # (AUTO) 1.7 X10'3 (1.1-4.8); LYMPHOCYTES % (AUTO) 14.2 % (21-51); MEAN CORPUSCULAR HEMOGLOBIN 32.8 PG (27.0-31.0); MEAN CORPUSCULAR HGB CONC 33.2 g/dL (33.0-36.5); MEAN CORPUSCULAR VOLUME 98.8 FL (78-98); MEAN PLATELET VOLUME 9.3 FL (7.4-10.4); MONOCYTES # (AUTO) 1.5 X10'3 (0-0.9); MONOCYTES % (AUTO) 13.1 % (2-12); NEUTROPHILS # (AUTO) 8.5 X10'3 (1.8-7.7); NEUTROPHILS % (AUTO) 72.3 % (42-75); PLATELET COUNT 308 X10'3 (140-440); RED BLOOD COUNT 5.28 X10'6 (4.70-6.10); RED CELL DISTRIBUTION WIDTH 15.8 % (11.5-14.5); WHITE BLOOD COUNT 11.8 X10'3 (4.5-11.0)
[2024-03-15 07:05] LABS: ALANINE AMINOTRANSFERASE 63 U/L (12-78); ALBUMIN 3.2 G/DL (3.4-5.0); ALKALINE PHOSPHATASE 85 IU/L (46-116); ANION GAP 11 (8-16); ASPARTATE AMINO TRANSFERASE 71 U/L (10-37); BILIRUBIN,TOTAL 3.6 MG/DL (0.1-1.0); BLOOD UREA NITROGEN 33 MG/DL (7-18); BUN/CREATININE RATIO 19.6 (10.0-20.0); CALCIUM 9.1 MG/DL (8.5-10.1); CHLORIDE 95 MMOL/L (99-107); CREATININE 1.68 MG/DL (0.60-1.10); GLUCOSE 115 MG/DL (70-104); MAGNESIUM 2.1 MG/DL (1.5-2.4); PHOSPHORUS 5.2 MG/DL (2.3-4.5); POTASSIUM 4.5 MMOL/L (3.5-5.1); SODIUM 133 MMOL/L (135-145); TOTAL CARBON DIOXIDE 27.5 MMOL/L (24-32); TOTAL PROTEIN 6.5 G/DL (6.4-8.2); eCRCL 44 ML/MIN; eGFR 40 ML/MIN
[2024-03-15] MEDS: lisinopril 2.5mg tablet PO SCH (08:50)
[2024-03-15 09:00] VITALS: RESP 24; O2SAT 100
[2024-03-15] MEDS: furosemide 20 MG/2 ML vial IV ONE (09:02)
[2024-03-15 09:12] VITALS: PULSE 82; RESP 18; O2SAT 96
[2024-03-15 10:00] VITALS: BP 111/78; PULSE 83; RESP 16; TEMP 97.5; O2SAT 97
[2024-03-15] MEDS ORDERED: SPIR25TA PO (10:57)
[2024-03-15] MEDS ORDERED: LISI2.5T14 PO (10:57)
[2024-03-15] MEDS ORDERED: LORA-269 PO (10:57)
[2024-03-15] MEDS ORDERED: CARV6.253 PO (10:57)
[2024-03-15] MEDS ORDERED: EMPA10TA PO (10:57)
[2024-03-16] MEDS ORDERED: furosemide 20 MG/2 ML vial IV SCH (08:00)
== END 2024-03-15 15:20 | disposition home health service (06) | DRG 291 ==
LOC: ER 16:22 → ED HOLD 19:50 → ORTHO 4S 21:47
PROVIDERS: ADMIT Surgery Surgical Critical Care; ATTEND Family Medicine
PROC: B32T1ZZ Computerized Tomography (CT Scan) of Left Pulmonary Artery using Low Osmolar Contrast (ICD-10-PCS; principal; 2024-03-12)
PROC: B3201ZZ Computerized Tomography (CT Scan) of Thoracic Aorta using Low Osmolar Contrast (ICD-10-PCS; 2024-03-12)
PROC: B32S1ZZ Computerized Tomography (CT Scan) of Right Pulmonary Artery using Low Osmolar Contrast (ICD-10-PCS; 2024-03-12)
DX: I50.23 Acute on chronic systolic (congestive) heart failure (principal); J96.01 Acute respiratory failure with hypoxia; N17.0 Acute kidney failure with tubular necrosis; F10.239 Alcohol dependence with withdrawal, unspecified; E87.6 Hypokalemia; I25.2 Old myocardial infarction; Z66 Do not resuscitate; J43.9 Emphysema, unspecified; I50.84 End stage heart failure; N40.0 Benign prostatic hyperplasia without lower urinary tract symptoms; Y90.9 Presence of alcohol in blood, level not specified; E80.6 Other disorders of bilirubin metabolism; I95.9 Hypotension, unspecified; Z79.84 Long term (current) use of oral hypoglycemic drugs; Z79.899 Other long term (current) drug therapy; Z82.41 Family history of sudden cardiac death; Z82.49 Family history of ischemic heart disease and other diseases of the circulatory system; Z82.5 Family history of asthma and other chronic lower respiratory diseases; Z83.3 Family history of diabetes mellitus; Z86.74 Personal history of sudden cardiac arrest; Z87.891 Personal history of nicotine dependence
CPT/HCPCS: 36415; 71045; 71275; 80053; 80061; 80305; 80320; 81001; 83036; 83735; 83880; 84100; 84484; 85025; 85610; 85730; 87081; 93005; 93306; 94640; 94760; 96365; 96375; 97161; 97530; 99285; A4314; A4615; A4620; A6258; A6449; C1758; G0378; J0696; J1644; J1940; Q9967